=== PATIENT | female | born 1970 | race Caucasian/White ===

== ENCOUNTER 2020-07-31 14:34 | Emergency (ER) | payer OTHER ==
[~2020-07-31] VITALS: Ht 162.6 cm; Wt 86.2 kg
[2020-07-31 16:41] VITALS: BP 156/116
== END 2020-07-31 16:42 | disposition home or self-care (01) ==
LOC: ER 15:24
DX: M79.89 Other specified soft tissue disorders (principal); S51.851D Open bite of right forearm, subsequent encounter; W54.0XXD Bitten by dog, subsequent encounter; Z87.442 Personal history of urinary calculi
CPT/HCPCS: 99283